=== PATIENT | male | born 1955 | race African-American/Black ===

== ENCOUNTER 2019-05-05 15:02 | Inpatient (IN) | payer MEDICAID ==
[~2019-05-05] VITALS: Ht 170.2 cm; Wt 55.8 kg
[2019-05-05 15:42] LABS: BASOPHILS % 0.2 % (0.0-2.0); HEMATOCRIT. 40.7 % (42.0-52.0); HEMOGLOBIN. 13.2 g/dL (14.0-18.0); LYMPHOCYTES % 8.8 % (20.0-50.0); MEAN CORPUSCULAR HEMOGLOBIN 27.3 pg (28.0-32.0); MEAN CORPUSCULAR VOLUME 83.9 fL (80.0-94.0); MONOCYTES % 5.7 % (2.0-8.0); NEUTROPHILS % 85.3 % (40.0-76.0); RED BLOOD CELL COUNT 4.85 mill/uL (4.7-6.1); RED CELL DISTRIBUTION WIDTH 14.2 % (11.6-14.6)
[2019-05-05 16:34] LABS: CHLORIDE 96 mEq/L (98-107)
[2019-05-05] MEDS ORDERED: MAGNESIUM 2 G PREMIX 50 ML IV ONE (16:45)
[2019-05-05] MEDS ORDERED: POTASSIUM CHLORIDE 20MEQ TABLET SR PO ONE (16:45)
[2019-05-05] MEDS ORDERED: KCL 20MEQ/100ML PREMIX 100 ML IV ONE (16:45)
[2019-05-05] MEDS ORDERED: PIPERACILLIN/TAZ 3.375G PREMIX 50 ML IV ONE (16:45)
[2019-05-05] MEDS ORDERED: VANCOMYCIN 1 G PREMIX 200 ML IV SCH (16:45)
[2019-05-05 16:52] LABS: CLARITY URINE CLEAR (CLEAR); COLOR URINE YELLOW (YELLOW); KETONES URINE NEGATIVE (NEGATIVE); LEUKOCYTE ESTERASE URINE NEGATIVE (NEGATIVE); NITRITE URINE NEGATIVE (NEGATIVE); OCCULT BLOOD URINE 3+ (NEGATIVE); PROTEIN URINE TRACE (NEGATIVE); SPECIFIC GRAVITY URINE 1.013 (1.005-1.030); UROBILINOGEN URINE 0.2 E.U./dL (0.2-1.0)
[2019-05-05] MEDS ORDERED: ASPIRIN 325MG TABLET PO ONE (17:15)
[2019-05-05 17:25] LABS: *COCAINE SCREEN URINE NEGATIVE (NEGATIVE); METHADONE URINE SCREEN NEGATIVE (NEGATIVE)
[2019-05-05 17:26] LABS: OPIATES URINE SCREEN NEGATIVE (NEGATIVE); PHENCYCLIDINE URINE SCREEN NEGATIVE (NEGATIVE)
[2019-05-05 17:28] LABS: *AMPHETAMINES SCREEN URINE NEGATIVE (NEGATIVE); *BARBITURATES SCREEN URINE NEGATIVE (NEGATIVE); CANNABINOID URINE SCREEN NEGATIVE (NEGATIVE)
[2019-05-05 17:29] LABS: *BENZODIAZEPINES SCREEN URINE NEGATIVE (NEGATIVE)
[2019-05-05 17:32] LABS: MEAN PLATELET VOLUME 11.1 fl (7.4-10.4); PLATELET 74 x1000/uL (130-400)
[2019-05-05] MEDS ORDERED: ENOXAPARIN 40MG/0.4ML SYR SUBCUT SCH (18:00)
[2019-05-05] MEDS ORDERED: MAGNESIUM/ALUMINUM HYDROXIDE/SIMETHICONE 30ML UDC PO PRN (18:00)
[2019-05-05] MEDS ORDERED: ONDANSETRON HCL 4MG/2ML INJ IV PRN (18:00)
[2019-05-05] MEDS ORDERED: DIPHENHYDRAMINE 50MG/ML VIAL IV PRN (18:00)
[2019-05-05] MEDS ORDERED: IPRATROPIUM/ALBUTEROL 0.5-3(2.5)MG/3ML NEB HHN PRN (18:00)
[2019-05-05] MEDS ORDERED: GUAIFENESIN 200MG/10ML SUGAR FREE UDC PO PRN (18:00)
[2019-05-05] MEDS ORDERED: ACETAMINOPHEN 325MG TABLET PO PRN (18:00)
[2019-05-05] MEDS ORDERED: ACETAMINOPHEN 650MG/20.3ML UDC GT PRN (18:00)
[2019-05-05] MEDS ORDERED: ACETAMINOPHEN 650MG SUPP PR PRN (18:00)
[2019-05-05] MEDS ORDERED: CLONIDINE 0.1MG TABLET PO PRN (18:00)
[2019-05-05] MEDS ORDERED: DOCUSATE SODIUM 100MG CAPSULE PO PRN (18:00)
[2019-05-05 18:03] LABS: ETHANOL BLOOD < 10 mg/dL
[2019-05-05 18:09] LABS: CREATINE KINASE MB FRACTION 20.2 ng/mL (0.5-3.6)
[2019-05-05 18:21] LABS: CREATINE KINASE 2525 IU/L (39-308)
[2019-05-05] MEDS ORDERED: NA PHOS,M-B/NA PHOS,DI-BA ENEMA 118ML PR PRN (23:00)
[2019-05-05] MEDS ORDERED: POTASSIUM CHLORIDE 20MEQ TABLET SR PO SCH (23:00)
[2019-05-05] MEDS ORDERED: CEFTRIAXONE 1 G PREMIX 50 ML IV NR (23:53)
[2019-05-06] MEDS: DEXT 5%/0.45% NACL 1000ML 1,000 ML IV SCH ×2 (00:24→23:18)
[2019-05-06 01:28] LABS: CREATINE KINASE MB FRACTION 8.7 ng/mL (0.5-3.6)
[2019-05-06 04:58] LABS: BASOPHILS % 0.3 % (0.0-2.0); HEMATOCRIT. 37.9 % (42.0-52.0); HEMOGLOBIN. 12.6 g/dL (14.0-18.0); LYMPHOCYTES % 8.4 % (20.0-50.0); MEAN CORPUSCULAR HEMOGLOBIN 27.4 pg (28.0-32.0); MEAN CORPUSCULAR VOLUME 82.9 fL (80.0-94.0); MONOCYTES % 8.3 % (2.0-8.0); PLATELET 65 x1000/uL (130-400); RED BLOOD CELL COUNT 4.57 mill/uL (4.7-6.1); RED CELL DISTRIBUTION WIDTH 14.1 % (11.6-14.6)
[2019-05-06 05:06] LABS: CHLORIDE 99 mEq/L (98-107)
[2019-05-06 05:14] LABS: CREATINE KINASE MB FRACTION 8.4 ng/mL (0.5-3.6); LDL CHOLESTEROL 37 mg/dL (5-100); PHOSPHORUS 1.8 mg/dL (2.5-4.9)
[2019-05-06 05:15] LABS: HDL CHOLESTEROL 58 mg/dL (40-59)
[2019-05-06 05:29] LABS: CREATINE KINASE 1434 IU/L (39-308)
[2019-05-06] MEDS ORDERED: POTASSIUM CHLORIDE 20MEQ TABLET SR PO NR ×2 (06:55→18:45)
[2019-05-06] MEDS ORDERED: POTASSIUM CHLORIDE 20MEQ TABLET SR PO SCH ×3 (09:00→18:00)
[2019-05-06 21:03] LABS: HEPATITIS B SURFACE ANTIGEN NEGATIVE
[2019-05-06 21:32] LABS: HEPATITIS A AB IGM NEGATIVE (NEGATIVE)
[2019-05-06 21:33] VITALS: BP 175/89
[2019-05-06 22:00] VITALS: BP 120/66
[2019-05-06 22:22] LABS: CHLORIDE 101 mEq/L (98-107); HEMOGLOBIN. 11.8 g/dL (14.0-18.0); MEAN CORPUSCULAR HEMOGLOBIN 27.2 pg (28.0-32.0); MEAN CORPUSCULAR VOLUME 83.3 fL (80.0-94.0); MEAN PLATELET VOLUME 11.5 fl (7.4-10.4); PLATELET 64 x1000/uL (130-400); RED BLOOD CELL COUNT 4.32 mill/uL (4.7-6.1); RED CELL DISTRIBUTION WIDTH 13.7 % (11.6-14.6)
[2019-05-06] MEDS: SODIUM CHLORIDE 0.9% INJ 3ML FLUSH IVF SCH ×2 (22:23→22:54)
[2019-05-06 22:39] VITALS: BP 120/66
[2019-05-06] MEDS ORDERED: CEFTRIAXONE 1 G PREMIX 50 ML IV SCH (23:00)
[2019-05-06] MEDS ORDERED: VANCOMYCIN 1 G PREMIX 200 ML IV SCH (23:30)
[2019-05-07] VITALS (12 sets, daily range): BP systolic 97–151; BP diastolic 58–83
[2019-05-07 05:03] LABS: PLATELET ESTIMATE DECREASED
[2019-05-07] MEDS: SODIUM CHLORIDE 0.9% INJ 3ML FLUSH IVF SCH ×3 (05:04→21:35)
[2019-05-07] MEDS: POTASSIUM CHLORIDE 20MEQ TABLET SR PO SCH ×3 (05:06→21:36)
[2019-05-07 07:29] LABS: CHLORIDE 98 mEq/L (98-107); EOSINOPHILS % 0.1 % (0.0-5.0); HEMATOCRIT. 37.5 % (42.0-52.0); HEMOGLOBIN. 12.3 g/dL (14.0-18.0); LYMPHOCYTES % 12.5 % (20.0-50.0); MEAN CORPUSCULAR HEMOGLOBIN 27.3 pg (28.0-32.0); MEAN CORPUSCULAR VOLUME 83.5 fL (80.0-94.0); MEAN PLATELET VOLUME 11.1 fl (7.4-10.4); MONOCYTES % 8.4 % (2.0-8.0); PLATELET 68 x1000/uL (130-400); RED CELL DISTRIBUTION WIDTH 13.9 % (11.6-14.6)
[2019-05-07 07:39] LABS: PHOSPHORUS 1.4 mg/dL (2.5-4.9)
[2019-05-07] MEDS ORDERED: POTASSIUM CHLORIDE 20MEQ TABLET SR PO NR (09:15)
[2019-05-07] MEDS: POTASSIUM-SODIUM PHOSPHATE POWDER PACKET PO SCH ×2 (09:35→20:28)
[2019-05-07] MEDS: VANCOMYCIN 1 G PREMIX 200 ML IV SCH ×2 (09:36→20:29)
[2019-05-07] MEDS ORDERED: POTASSIUM PHOS,M-BASIC-D-BASIC 20 MMOL in DEXT 5% WATER 243.3333 ML IV NR (10:00)
[2019-05-07 10:09] LABS: *CREATININE RANDOM URINE 52.2 mg/dL (Not Estab.); MICROALBUMIN RANDOM URINE 53.4 ug/mL (Not Estab.)
[2019-05-07 15:10] LABS: BG BASE EXCESS 13.4 mmol/L (-2.0-2.0); BG CARBOXYHEMOGLOBIN 0.3 % (0.5-1.5); BG DEOXYHEMOGLOBIN 4.7 % (0.0-5.0); BG FRACTION INSPIRED OXYGEN 21; BG HCO3 ACT 37.8 mmol/L (22.0-26.0); BG METHEMOGLOBIN 0.3 % (0.0-1.5); BG OXYGEN SATURATION 95.3 % (92.0-98.5); BG OXYHEMOGLOBIN 94.7 % (94.0-97.0); BG PCO2 46.1 mmHg (35.0-45.0); BG PH 7.532 (7.350-7.450); BG PO2 75.5 mmHg (75.0-100.0); BG SAMPLE SITE RIGHT BRACHIAL; BG TOTAL HEMOGLOBIN 13.7 g/dL (12.0-18.0); BG VENT MODE ROOM AIR
[2019-05-07] MEDS ORDERED: DIPHENOXYLATE/ATROPINE 2.5/0.025MG TABLET PO PRN (17:00)
[2019-05-07] MEDS: CEFTRIAXONE 1 G PREMIX 50 ML IV SCH (20:29)
[2019-05-07] MEDS: DEXT 5%/0.45% NACL 1000ML 1,000 ML IV SCH (20:55)
[2019-05-08] VITALS (12 sets, daily range): BP systolic 100–133; BP diastolic 56–78
[2019-05-08] MEDS: DEXT 5%/0.45% NACL 1000ML 1,000 ML IV SCH ×2 (04:47→17:12)
[2019-05-08] MEDS: SODIUM CHLORIDE 0.9% INJ 3ML FLUSH IVF SCH ×3 (05:00→21:10)
[2019-05-08] MEDS: POTASSIUM CHLORIDE 20MEQ TABLET SR PO SCH ×2 (05:01→17:12)
[2019-05-08 07:46] LABS: CHLORIDE 99 mEq/L (98-107)
[2019-05-08 07:58] LABS: BASOPHILS % 0.1 % (0.0-2.0); EOSINOPHILS % 0.3 % (0.0-5.0); HEMATOCRIT. 35.3 % (42.0-52.0); HEMOGLOBIN. 11.8 g/dL (14.0-18.0); LYMPHOCYTES % 12.4 % (20.0-50.0); MEAN CORPUSCULAR HEMOGLOBIN 28.1 pg (28.0-32.0); MEAN CORPUSCULAR VOLUME 83.6 fL (80.0-94.0); MONOCYTES % 9.9 % (2.0-8.0); NEUTROPHILS % 77.3 % (40.0-76.0); RED BLOOD CELL COUNT 4.22 mill/uL (4.7-6.1); RED CELL DISTRIBUTION WIDTH 13.9 % (11.6-14.6)
[2019-05-08 08:01] LABS: PHOSPHORUS 1.8 mg/dL (2.5-4.9)
[2019-05-08 08:07] LABS: HIV SCREEN 4G Non Reactive (Non Reactive)
[2019-05-08] MEDS: VANCOMYCIN 1 G PREMIX 200 ML IV SCH (08:36)
[2019-05-08] MEDS: POTASSIUM-SODIUM PHOSPHATE POWDER PACKET PO SCH ×2 (08:36→17:12)
[2019-05-08] MEDS ORDERED: MAGNESIUM 4 G PREMIX 100 ML IV SCH (11:00)
[2019-05-08 12:12] LABS: PLATELET 71 x1000/uL (130-400)
[2019-05-08] MEDS: VANCOMYCIN 750 MG PREMIX 150 ML IV SCH (14:00)
[2019-05-08] MEDS ORDERED: POTASSIUM PHOS,M-BASIC-D-BASIC 20 MMOL in DEXT 5% WATER 243.3333 ML IV NR (16:00)
[2019-05-08] MEDS: CEFTRIAXONE 1 G PREMIX 50 ML IV SCH (21:10)
[2019-05-08] MEDS ORDERED: DIPHENOXYLATE/ATROPINE 2.5/0.025MG TABLET PO PRN (22:15)
[2019-05-09] VITALS (11 sets, daily range): BP systolic 97–139; BP diastolic 51–79
[2019-05-09] MEDS: POTASSIUM CHLORIDE 20MEQ TABLET SR PO SCH ×5 (00:49→23:59)
[2019-05-09] MEDS: VANCOMYCIN 750 MG PREMIX 150 ML IV SCH ×2 (02:12→13:56)
[2019-05-09] MEDS: SODIUM CHLORIDE 0.9% INJ 3ML FLUSH IVF SCH ×3 (06:00→22:00)
[2019-05-09] MEDS: DEXT 5%/0.45% NACL 1000ML 1,000 ML IV SCH (08:09)
[2019-05-09] MEDS: POTASSIUM-SODIUM PHOSPHATE POWDER PACKET PO SCH ×2 (09:00→17:44)
[2019-05-09 09:30] LABS: BASOPHILS % 0.1 % (0.0-2.0); EOSINOPHILS % 1.1 % (0.0-5.0); HEMATOCRIT. 36.6 % (42.0-52.0); LYMPHOCYTES % 13.4 % (20.0-50.0); MEAN CORPUSCULAR HEMOGLOBIN 27.4 pg (28.0-32.0); MEAN CORPUSCULAR VOLUME 83.9 fL (80.0-94.0); MEAN PLATELET VOLUME 10.7 fl (7.4-10.4); MONOCYTES % 9.1 % (2.0-8.0); NEUTROPHILS % 76.3 % (40.0-76.0); PLATELET 94 x1000/uL (130-400); RED BLOOD CELL COUNT 4.37 mill/uL (4.7-6.1); RED CELL DISTRIBUTION WIDTH 14.3 % (11.6-14.6)
[2019-05-09 09:33] LABS: HEMOGLOBIN. 11.9 g/dL (14.0-18.0)
[2019-05-09 09:51] LABS: CHLORIDE 103 mEq/L (98-107)
[2019-05-09 09:57] LABS: PHOSPHORUS 1.5 mg/dL (2.5-4.9)
[2019-05-09] MEDS ORDERED: MAGNESIUM 2 G PREMIX 50 ML IV ONE (16:00)
[2019-05-09] MEDS ORDERED: POTASSIUM PHOS,M-BASIC-D-BASIC 20 MMOL in DEXT 5% WATER 243.3333 ML IV NR (17:00)
[2019-05-09] MEDS: CEFTRIAXONE 1 G PREMIX 50 ML IV SCH (20:12)
[2019-05-10] VITALS (11 sets, daily range): BP systolic 97–129; BP diastolic 53–75
[2019-05-10] MEDS: METRONIDAZOLE 500MG TABLET PO SCH ×2 (00:20→06:04)
[2019-05-10] MEDS: VANCOMYCIN 750 MG PREMIX 150 ML IV SCH ×2 (02:21→13:32)
[2019-05-10] MEDS: SODIUM CHLORIDE 0.9% INJ 3ML FLUSH IVF SCH ×2 (06:00→14:53)
[2019-05-10] MEDS: POTASSIUM CHLORIDE 20MEQ TABLET SR PO SCH ×3 (06:04→17:19)
[2019-05-10 07:38] LABS: BASOPHILS % 0.1 % (0.0-2.0); HEMATOCRIT. 33.4 % (42.0-52.0); LYMPHOCYTES % 7.8 % (20.0-50.0); MEAN CORPUSCULAR HEMOGLOBIN 27.5 pg (28.0-32.0); MEAN CORPUSCULAR VOLUME 83.6 fL (80.0-94.0); MEAN PLATELET VOLUME 9.8 fl (7.4-10.4); MONOCYTES % 13.2 % (2.0-8.0); NEUTROPHILS % 77.9 % (40.0-76.0); PLATELET 96 x1000/uL (130-400); RED BLOOD CELL COUNT 3.99 mill/uL (4.7-6.1)
[2019-05-10 08:27] LABS: CHLORIDE 106 mEq/L (98-107)
[2019-05-10 08:35] LABS: PHOSPHORUS 1.6 mg/dL (2.5-4.9)
[2019-05-10] MEDS: POTASSIUM-SODIUM PHOSPHATE POWDER PACKET PO SCH ×2 (09:56→17:18)
[2019-05-10] MEDS ORDERED: MAGNESIUM 2 G PREMIX 50 ML IV NR (14:00)
[2019-05-10] MEDS ORDERED: POTASSIUM PHOS,M-BASIC-D-BASIC 20 MMOL in DEXT 5% WATER 243.3333 ML IV NR (16:00)
== END 2019-05-10 22:00 | disposition home or self-care (01) | DRG 139 ==
LOC: ER 15:02 → 3WST 17:06 → ENRESERV 05-06 18:58
PROVIDERS: ADMIT Family Medicine; ATTEND Family Medicine
DX: J18.9 Pneumonia, unspecified organism (principal); E44.0 Moderate protein-calorie malnutrition; D69.6 Thrombocytopenia, unspecified; E87.5 Hyperkalemia; E83.39 Other disorders of phosphorus metabolism; E83.42 Hypomagnesemia; J44.0 Chronic obstructive pulmonary disease with (acute) lower respiratory infection; M62.82 Rhabdomyolysis; R62.7 Adult failure to thrive; L03.115 Cellulitis of right lower limb; L03.116 Cellulitis of left lower limb; R18.8 Other ascites; N13.30 Unspecified hydronephrosis; K80.20 Calculus of gallbladder without cholecystitis without obstruction; E87.6 Hypokalemia; R73.9 Hyperglycemia, unspecified; K76.89 Other specified diseases of liver; Z56.0 Unemployment, unspecified; Z68.1 Body mass index [BMI] 19.9 or less, adult
CPT/HCPCS: 36415; 36600; 71045; 74176; 76700; 78227; 80048; 80053; 80061; 80202; 80305; 80320; 81003; 82043; 82270; 82375; 82436; 82550; 82553; 82570; 82805; 83605; 83735; 83880; 84100; 84132; 84133; 84134; 84300; 84484; 85025; 86705; 86709; 86803; 87015; 87045; 87340; 87389; 87427; 87449; 87493; 89055; 93005; 93970; 96365; 96366; 96367; 96368; 97116; 97162; 97530; 99291; A9537; J0696; J2543; J3370; J3475; J3480; J3490; J7060; G0480